=== PATIENT | female | born 1955 | race Caucasian/White ===

== ENCOUNTER 2016-11-01 08:49 | Day surgery (SDC) ==
[2016-08-28 11:30] VITALS: BMI 25.8
[2016-11-01] MEDS ORDERED: DIPRIVAN 20 ML VIAL IVP ONE (10:55)
[2016-11-01] MEDS ORDERED: VERSED ONE (10:55)
[2016-11-01 12:02] VITALS: BP 91/50; TEMP 98.2
--- NOTE | 2016-11-02 08:59 | OP ---
PROCEDURE: COLONOSCOPY TO THE CECUM WITH SNARE POLYPECTOMY. ENDOSCOPIST: Franklin WALLACE M.D. INDICATION: SCREENING INSTRUMENT: [id number]. MEDICATION: PER ANESTHESIA. PROCEDURE: The patient was positioned for colonoscopy. The digital rectal exam was negative. The colonoscope was inserted through the anus and advanced under to the cecum. The cecum was identified using the ileocecal valve and the appendiceal orifice as landmarks. The scope was slowly withdrawn through an adequately prepped colon. Sessile polyps noted at 40 cm consistent with hyperplastic polyps. Diverticula throughout the left colon. Retroflex exam with hemorrhoids. She tolerated the procedure without immediate complication. Withdrawal time 8 minutes and 28 seconds. PLAN: 1. Suggest she be referred for surveillance colonoscopy in five years. CC: DR. JOE PERDOMO
== END 2016-11-01 12:15 | disposition home or self-care (01) ==
LOC: SURG 08:49
PROVIDERS: ATTEND Internal Medicine Gastroenterology
DX: Z12.11 Encounter for screening for malignant neoplasm of colon (principal); D12.5 Benign neoplasm of sigmoid colon; K57.30 Diverticulosis of large intestine without perforation or abscess without bleeding; K64.9 Unspecified hemorrhoids

== ENCOUNTER 2016-11-04 10:02 | Outpatient (CLI) ==
[2016-08-28 11:30] VITALS: BMI 25.8
--- NOTE | 2016-11-04 11:50 | US ---
EXAM: ULTRASOUND LOWER EXTREMITY VENOUS DOPPLER EXAM HISTORY: Leg pain. FINDDINGS: Left lower extremity venous Doppler exam. Real time parson-scale, Doppler spectral analysi s and color-flow Doppler imaging performed. The veins targeted for evaluation include the common fe moral, greater saphenous, profundus, femoral, popliteal, peroneal, anterior tibial and posterior tib ial. The evaluated veins demonstrated normal spontaneous flow and compression without evidence of thrombosis. No valvular reflux. IMPRESSION: No venous thrombosis identified within the areas evaluated.
== END 2016-11-04 10:03 | disposition home or self-care (01) ==
LOC: RAD 10:02
PROVIDERS: ATTEND Emergency Medicine
DX: M79.605 Pain in left leg (principal)

== ENCOUNTER 2016-12-03 12:57 | Outpatient (CLI) ==
[2016-08-28 11:30] VITALS: BMI 25.8
--- NOTE | 2016-12-03 13:47 | DI ---
EXAM: Two views of the right hip. History: Right hip pain. Findings: No acute fracture or dislocation. The right hip joint space is relatively preserved. De generative changes within the lower lumbar spine. Impression: No acute osseous abnormality.
--- NOTE | 2016-12-03 13:50 | DI ---
EXAM: RIGHT KNEE. HISTORY: Right knee pain. FINDINGS: Right knee four view. No comparison. General bone density appears normal. The joints h ave normal articular cartilage width without obvious arthropathy. No notable joint effusion is seen . No fracture or soft tissue finding. IMPRESSION: Within normal limits.
== END 2016-12-03 12:58 | disposition home or self-care (01) ==
LOC: RAD 12:57
PROVIDERS: ATTEND Internal Medicine
DX: M25.551 Pain in right hip (principal); M79.604 Pain in right leg

== ENCOUNTER 2017-01-23 17:37 | Emergency (ER) ==
[2017-01-23 17:43] VITALS: BP 118/81; TEMP 97; BMI 25.9
[2017-01-23 18:07] LABS: BASOPHILS % (AUTO) 0.5 % (0.0-3.0); EOSINOPHILS # (AUTO) 0.2 K/ul (0.0-0.7); EOSINOPHILS % (AUTO) 2.9 % (0.0-7.0); HEMATOCRIT 36.4 % (37.0-47.0); HEMOGLOBIN 12.2 g/dl (12.0-16.0); IMMATURE GRANULOCYTE % (AUTO) 0.3 % (0.0-5.0); LYMPHOCYTES # (AUTO) 1.4 K/uL (0.60-3.4); LYMPHOCYTES % (AUTO) 20.6 (10.0-50.0); MEAN CORPUSCULAR HEMOGLOBIN 29.3 pg (27.0-31.0); MEAN CORPUSCULAR HGB CONC 33.5 (31.8-35.4); MEAN CORPUSCULAR VOLUME 87.5 fl (81.0-99.0); MONOCYTES # (AUTO) 0.6 K/uL (0.4-2.0); MONOCYTES % (AUTO) 9.1 (0-10); NEUTROPHILS # (AUTO) 4.4 K/ul (2.0-6.9); NEUTROPHILS % (AUTO) 66.6; PLATELET COUNT 214 10^3/uL (140-440); RED BLOOD COUNT 4.16 10^6/ul (4.20-5.40); WHITE BLOOD COUNT 6.56 K/ul (4.6-10.2)
[2017-01-23] MEDS ORDERED: TORADOL IM STA (18:19)
[2017-01-23] MEDS ORDERED: DECADRON 4 MG/ML SDV IM STA (18:19)
--- NOTE | 2017-01-23 18:21 | ED.PDOC ---
General ED Provider: Dr. RANDALL SEGAL Chief Complaint: Chest Pain Stated Complaint: Ihave recently diagnosed with fibromyalgia by Dr Diaz. am hurting all over, but also hurting in the chest, dull type, not related to exertions, i had multiple stress tests in the past. i have f/u with Dr luque on tuesday. Time Seen by Physician: 18:19 Mode of Arrival: Walk-In Information Source: Patient Primary Care Provider: FELISHA DIAZ Nursing and Triage Documentation Reviewed and Agree: Yes Cardiovascular Complaint Exam - Chest Pain Complaint/Exam Onset: Gradual Symptoms Are: Still present Timing: Constant Initial Severity: Mild Current Severity: Mild Location: Reports: Midsternal Pain Radiates: Reports: Back, Left shoulder, Right shoulder, Left arm, Right arm , Epigastrium Character: Reports: Dull Aggravating: Reports: None Alleviating: Reports: None Associated Signs and Symptoms: Denies: Diaphoresis, Nausea, Vomiting, Fever, Palpitations, Cough, Hemoptysis, Back pain, Abdominal pain, Dizziness, Short of air, Calf pain, Calf swelling Related History: Reports: Similar episode Related Surgical History: Reports: None History of Healthcare-Acquired Pneumonia: Reports: No AMI/ACS Risk Factors: Reports: None TAD Risk Factors: Reports: None Pulmonary Embolism Risk Factors: Reports: None Prior Care for this Complaint: Yes Recent Stress Test: Yes Recent Echo/LV Function: Yes JVD Present: No Subcutaneous Emphysema Present: No Diminshed Breath Sounds: No Reproducible Chest Wall Pain: No Bilateral Pulses Present: Yes If Risk Factors for AMI/ACS Consider: EKG, Cardiac Enzymes, Serial Studies Differential Diagnoses: Chest Wall Pain, Other (fibromyalgia ) Review of Systems - Review Of Systems Constitutional: Reports: Malaise, Weakness Eyes: Reports: No symptoms Ears, Nose, Mouth, Throat: Reports: No symptoms Respiratory: Reports: No symptoms Cardiac: Reports: Chest pain GI: Reports: No symptoms : Reports: No symptoms Musculoskeletal: Reports: No symptoms Skin: Reports: No symptoms Neurological: Reports: No symptoms Endocrine: Reports: No symptoms Hematologic/Lymphatic: Reports: No symptoms All Other Systems: Reviewed and Negative Past Medical History - Past Medical History Endocrine: Reports: Dyslipidemia Cardiovascular: Reports: Hypertension (meds) Respiratory: Reports: None Hematological: Reports: None Gastrointestinal: Reports: GERD Genitourinary: Reports: None Neuro/Psych: Reports: Depression (meds), Other (fibromylagia ) Musculoskeletal: Reports: None Cancer: Reports: None Last Menstrual Period: none - Surgical History General Surgical History: Reports: None - Family History Family History: Reports: Unknown - Social History Smoking Status: Current every day smoker, Light tobacco smoker Smoking Cessation Counseling Time: > 3 min - 10 min Hx Substance Use: No Alcohol Screening: None Physical Exam - Physical Exam Appearance: Well-appearing, No pain distress, Well-nourished Eyes: LILA, EOMI, Conjunctiva clear ENT: Ears normal, Nose normal, Oropharynx normal Respiratory: Airway patent, Breath sounds clear, Breath sounds equal, Respirations nonlabored Cardiovascular: RRR, Pulses normal, No rub, No murmur GI/: Soft, Nontender, No masses, Bowel sounds normal, No Organomegaly Musculoskeletal: Normal strength, ROM intact, No edema, No calf tenderness Skin: Warm, Dry, Normal color Neurological: Sensation intact, Motor intact, Reflexes intact, Cranial nerves intact, Alert, Oriented Psychiatric: Affect appropriate, Mood appropriate Interpretation - Radiology Interpretation Radiology Interpretation By: ED Physician Radiology Results: Negative Exam Interpreted: CXR - EKG Interpretation Time of EKG #1: 17:45 Rate: Normal Rhythm: Sinus Ectopy: None Re-Evaluation - Re-Evaluation Time of Re-Evaluation: 18:54 Status: Improved Critical Care Note - Critical Care Note Total Time (mins): 0 Course - Course Hematology/Chemistry: 01/23/17 17:55 01/23/17 17:55 Orders, Labs, Meds: Lab Review 01/23/17 17:55 WBC 6.56 RBC 4.16 L Hgb 12.2 Hct 36.4 L MCV 87.5 MCH 29.3 MCHC 33.5 RDW Coeff of Harsh 14.9 H Plt Count 214 Immature Gran % (Auto) 0.3 Neut % (Auto) 66.6 Lymph % (Auto) 20.6 [place] % (Auto) 9.1 Eos % (Auto) 2.9 Baso % (Auto) 0.5 Immature Gran # (Auto) 0.0 Neut # 4.4 Lymph # 1.4 [place] # 0.6 Eos # 0.2 Baso # 0.0 Sodium 138 Potassium 4.1 Chloride 105 Carbon Dioxide 22 L Anion Gap 15.1 BUN 15 Creatinine 1.00 Estimated GFR (MDRD) 56.00 BUN/Creatinine Ratio 15.00 Glucose 97 Calcium 9.4 Total Bilirubin 0.40 AST 19 ALT 21 Alkaline Phosphatase 93 Total Creatine Kinase 53 Troponin I 0.0100 Total Protein 7.7 Albumin 4.2 Globulin 3.5 Albumin/Globulin Ratio 1.20 Orders Category Date Time Status EKG-(ED ONLY) Stat CARDIO 01/23/17 17:46 Completed CBC W/ AUTO DIFF Stat LAB 01/23/17 17:55 Completed COMPREHENSIVE METABOLIC PANEL Stat LAB 01/23/17 17:55 Completed CREATINE KINASE Stat LAB 01/23/17 17:55 Completed TROPONIN I Stat LAB 01/23/17 17:55 Completed Dexamethasone 4 mg/ml Inj [Decadron 4 mg/ml Sdv] MEDS 01/23/17 18:19 Discontinued 4 mg IM ONCE STA Ketorolac Tromethamine [Toradol] MEDS 01/23/17 18:19 Discontinued 60 mg IM ONCE STA CXR [CHEST, 2 VIEWS PA & LAT] Stat RADS 01/23/17 17:46 Taken Medications Discontinued Medications Generic Name Dose Route Start Last Admin Trade Name Lewis PRN Reason Stop Dose Admin Dexamethasone Sodium Phosphate 4 mg 01/23/17 18:19 01/23/17 18:28 Decadron 4 Mg/Ml Sdv IM 01/23/17 18:20 4 mg ONCE STA Administration Ketorolac Tromethamine 60 mg 01/23/17 18:19 01/23/17 18:28 Toradol IM 01/23/17 18:20 60 mg ONCE STA Administration Vital Signs: Temp Pulse Resp BP Pulse Ox 01/23/17 17:37 97.0 F L 76 22 118/81 99 CRIS Risk Score CRIS Risk Score: Risk Score Odds of by 30D 0 0.1 (0.1-0.2) 1 0.3 (0.2-0.3) 2 0.4 (0.3-0.5) 3 0.7 (0.6-0.9) 4 1.2 (1.0-1.5) 5 2.2 (1.9-2.6) 6 3.0 (2.5-3.6) 7 4.8 (3.8-6.1) Departure - Departure Time of Disposition: 18:50 Disposition: HOME SELF-CARE Discharge Problem: Fibromyalgia Instructions: Trigger Point Pain (ED) Condition: Stable Pt referred to PMD for follow-up: Yes Additional Instructions: Patient has f/u with manager motor on tuesday Keep taking prednisone 5 po bid Prescriptions: Prednisone 5 mg PO BIDWM #14 tablet Allergies/Adverse Reactions: Allergies No Known Allergies Allergy (Verified 01/23/17 17:43) Home Medications: Ambulatory Orders Bupropion HCl [Wellbutrin Xl] 300 mg PO DAILY 09/26/13 Lisinopril [Zestril] 20 mg PO DAILY 09/26/13 [place]-3 Fatty Acids/Dha/Epa [Megared Plant-[place] 300 mg Cap] 300 mg PO DAILY Pantoprazole Sodium [Protonix] 40 mg PO DAILY PRN 08/28/16 Atorvastatin Calcium [Lipitor] 20 mg PO DAILY 10/28/16 Multivit-Min/FA/Lycopene/Lut [Centrum Silver Tablet] 1 tab PO DAILY 10/28/16 Alprazolam [Xanax] 0.25 mg PO DAILY PRN 11/01/16 Cholecalciferol (Vitamin D3) [D3-2000] 2,000 units PO DAILY 11/01/16 Prednisone 5 mg PO BIDWM #14 tablet 01/23/17 Disposition Discussed With: Patient, Family
[2017-01-23 18:32] LABS: ALBUMIN 4.2 g/dL (3.4-5.0); ALBUMIN/GLOBULIN RATIO 1.2; ANION GAP 15.1; BILIRUBIN,TOTAL 0.4 mg/dL (0.00-1.20); CALCIUM 9.4 mg/dL (8.2-10.2); POTASSIUM 4.1 mmol/L (3.5-5.10); TOTAL PROTEIN 7.7 g/dL (5.8-8.1); TROPONIN I 0.01 ng/ml (0.0000-0.4000)
--- NOTE | 2017-01-24 07:38 | DI ---
EXAM: Chest two view, frontal and lateral views. HISTORY: Chest pain. COMPARISON: 08/28/2016. FINDINGS: The heart size is normal. There is no pulmonary vascular congestion. The lungs are hype rexpanded with increased interstitial markings. Calcified granulomatous changes noted. Right apica l scarring is stable. No new areas of parenchymal opacity identified. No pleural effusion or pneum othorax is seen. No acute osseous abnormality identified. Since the prior study, there has been no significant interval change. IMPRESSION: No acute cardiopulmonary process.
== END 2017-01-23 18:59 | disposition home or self-care (01) ==
LOC: ED 17:37
DX: M79.7 Fibromyalgia (principal); R07.9 Chest pain, unspecified; E78.5 Hyperlipidemia, unspecified; I10 Essential (primary) hypertension; F17.210 Nicotine dependence, cigarettes, uncomplicated; Z79.899 Other long term (current) drug therapy
CPT/HCPCS: 36415; 80053; 82550; 84484; 85025; 93005; 93010; 96372; 99283

== ENCOUNTER 2017-03-22 13:26 | Outpatient (CLI) ==
--- NOTE | 2017-03-23 10:09 | MAMMO ---
EXAM: Bilateral digital screening mammogram History: Screening Comparison: Bilateral mammogram 02/23/2016 Findings: MLO and CC views of bilateral breasts demonstrate scattered fibroglandular breast parench yma. There are no dominant masses, no suspicious microcalcifications and no architectural distortion s Impression: Stable negative mammogram. Recommend followup routine screening mammography in 1 year. BIRADS 1
== END 2017-03-22 13:27 | disposition home or self-care (01) ==
LOC: RAD 13:26
PROVIDERS: ATTEND Internal Medicine
DX: Z12.31 Encounter for screening mammogram for malignant neoplasm of breast (principal)

== ENCOUNTER 2017-07-26 07:45 | Outpatient (CLI) ==
[2017-07-26 08:13] LABS: CREATININE 0.99 mg/dL (0.60-1.30)
--- NOTE | 2017-07-26 09:23 | CT ---
EXAM: CT ABDOMEN AND PELVIS HISTORY: Tobacco use. Lung nodularity on previous CT. TECHNIQUE: CT abdomen and pelvis without intravenous contrast. Images were reconstructed using 5 mm section thickness. Reformations were prepared. COMPARISON: 06/15/2016 FINDINGS: Normal heart size. No pericardial effusion. Mild atherosclerotic disease. Scattered mediastinal ly mph nodes many which are calcified. Lungs reveal biapical emphysema and are hyperinflated. There is interstitial thickening and nodularit y as well as pleural thickening in the right apex with no worsening or noticeable change since the re cent prior study. A few tiny nonspecific bilateral pleural based micro nodules are seen. There is a calcified granuloma in the left lower lobe measuring about 0.7 cm. No vascular congestion, central interstitial edema, pneumothorax or pleural fluid. The bones reveal degenerative osteophytic spurring of the spine with mild scoliosis convex to the rig ht. IMPRESSION: Redemonstration of pulmonary emphysema and biapical scarring. Nodularity within a porti on of the worse scarring (right apex) exists which may be fibrotic, inflammatory, infectious or proba bryan less likely neoplastic. There has been no noticeable change since the recent prior exam. The la rgest nodular focus of this area measures about 0.88 cm. Consider follow-up CT in approximately 3 mon ths.
--- NOTE | 2017-07-26 09:42 | CT ---
EXAM: CT BRAIN, COMPLETE HISTORY: Headache and dizziness TECHNIQUE: CT brain with and without intravenous contrast. 5-mm axial sections. Reformations were prepared. 100 ml Visipaque 320 FINDINGS: No comparison. Brain parenchyma demonstrates no significant abnormality. No suggestion of recent large vessel distribution ischemic infarction. No intracranial hemorrhage or acute subdura l fluid collection. There is no acute ventriculomegaly, mass or mass effect. After intravenous contrast administration, there were no foci of abnormal contrast enhancement discov ered. Cranium is intact. Mastoid air cells are aerated. The visualized paranasal sinuses are clear. IMPRESSION: Within normal limits.
== END 2017-07-26 07:46 | disposition home or self-care (01) ==
LOC: RAD 07:45
PROVIDERS: ATTEND Internal Medicine
DX: R51 Headache (principal); R42 Dizziness and giddiness; F17.210 Nicotine dependence, cigarettes, uncomplicated
CPT/HCPCS: 36415; 82565

== ENCOUNTER 2017-07-29 14:30 | Outpatient (CLI) ==
--- NOTE | 2017-07-29 14:55 | DI ---
EXAM: Radiographs, left hip HISTORY: Left hip pain. COMPARISON: None available. TECHNIQUE: Two views. FINDINGS: Bone mineralization is decreased. There is no fracture or dislocation. The joint spaces are maintained. No focal soft tissue abnormality is seen. IMPRESSION: No acute abnormality of the left hip.
--- NOTE | 2017-07-29 14:56 | DI ---
Exam: Three x-rays of the lumbar spine. Comparison: CT abdomen pelvis performed on 02/06/2015. Reason for exam: Pain. FINDINGS: Multilevel degenerative disease is seen within the lumbar spine with intervertebral body d isc space height loss and facet hypertrophy. The imaged osseous structures appear diffusely deminera lized. There is mild levoscoliosis of the lumbar spine. There is relative maintenance of the lumbar lordotic curve. Impression: No obvious fracture or listhesis in the lumbar spine with multilevel degenerative diseas e.
== END 2017-07-29 14:31 | disposition home or self-care (01) ==
LOC: RAD 14:30
PROVIDERS: ATTEND Internal Medicine
DX: M54.5 Low back pain (principal); M25.552 Pain in left hip

== ENCOUNTER 2017-10-25 07:40 | Outpatient (CLI) ==
--- NOTE | 2017-10-25 09:41 | DEXA ---
EXAM: Bone densitometry. History: Osteoporosis. Findings: Evaluation of the lumbar spine reveals a total bone mineral density of 1.104 grams per centimeter squ ared with T-score of negative 0.6. Evaluation of the left hip reveals a total bone mineral density of 0.836 grams per centimeter squared with T-score of negative 1.4. Evaluation of the right hip reveals a total bone mineral density of 0.838 grams per centimeter square d with T-score of negative 1.3. Impression: 1. Normal bone mineral density of the lumbar spine. 2. Osteopenia of bilateral hips
== END 2017-10-25 07:41 | disposition home or self-care (01) ==
LOC: RAD 07:40
PROVIDERS: ATTEND Internal Medicine
DX: M81.0 Age-related osteoporosis without current pathological fracture (principal)

== ENCOUNTER 2018-03-30 09:23 | Observation (INO) ==
[2018-03-30] MEDS ORDERED: VALIUM SYRINGE IVP STA (09:52)
[2018-03-30] MEDS ORDERED: VALIUM PO STA (10:18)
--- NOTE | 2018-03-30 11:15 | CT ---
EXAM: CT BRAIN HISTORY: Dizziness TECHNIQUE: CT brain without intravenous contrast. 5-mm axial sections with Reformations. COMPARISON: 07/26/2017 FINDINGS: Brain is unremarkable without evidence of hemorrhage or large vessel distribution recent ischemic in farction. There is no suggestion of acute hydrocephalus or subdural fluid collection. No mass or ma ss effect. Cranium is within normal limits. Mastoid processes are aerated. The visualized paranasal sinuses a re clear. IMPRESSION: No acute intracranial process.
--- NOTE | 2018-03-30 12:04 | ED.PDOC ---
General ED Provider: Dr. NICK SALGADO Chief Complaint: Dizziness Stated Complaint: DIZZINESS Time Seen by Physician: 09:30 (SEEN WITH NURSING STAFF AT ALL TIMES ) Mode of Arrival: Walk-In Information Source: Patient Exam Limitations: No limitations Primary Care Provider: FELISHA DIAZ Nursing and Triage Documentation Reviewed and Agree: Yes Does patient meet sepsis criteria?: No If yes, has appropriate treatment been initiated?: No System Inflammatory Response Syndrome: Not Applicable Sepsis Protocol: For patient's 13 years and over: Temp is 96.8 and below OR 101 and greater Pulse >90 BPM Resp >20/minute Acutely Altered Mental Status Are patient's symptoms suggestive of a new infection, such as: -Pneumonia -Skin, Soft Tissue -Endocarditis -UTI -Bone, Joint Infection -Implantable Device -Acute Abdominal Infection -Wound Infection -Meningitis -Blood Stream Catheter Infection -Unknown Neurological Complaint Exam - Dizziness Complaint/Exam Last Known Well: 1 DAY AGO NOW HAS POSTIONAL VERTIGO Onset: Gradual Duration: 1 DAY NO NEURO DEFICITS Symptoms Are: Still present Timing: Intermittent (HEAD MOTION) Episodes Lasting: Hours Initial Severity: Moderate Current Severity: Mild Character: Reports: Head spinning, Lightheaded Aggravating: Reports: None Alleviating: Reports: Rest Associated Signs and Symptoms: Reports: Nausea. Denies: Vomiting, Diaphoresis, Tinnitus, Chest pain, Short of air, Palpitations, Unsteady gait, GI blood loss, Visual changes, Decreased oral intake, Change in medication, Change in diet, OTC meds, Loss of balance Cardiac Risk Factors: Reports: Hypertension CVA Risk Factors: Reports: Hypertension Related Surgical History: Reports: None JVD Present: No Carotid Bruit Present: No Rectal Heme Positive: No Glascow Coma Scale (see protocol): 15 Nystagmus Present: No Gag Reflex Present: Yes Meningeal Signs Positive: No Focal Weakness: Present: None Focal Sensory Loss: Present: None Gait: Normal Differential Diagnoses: Dysrhythmia, Labyrinthitis Quality Indicators for Cardiac Chest Pain: EKG in 10min. Quality Indicators for AMI: EKG in 10min. Quality Indicator For Non-Traumatic Chest Pain/Syncope: EKG Performed Review of Systems - Review Of Systems Constitutional: Reports: No symptoms Eyes: Reports: No symptoms Ears, Nose, Mouth, Throat: Reports: No symptoms Respiratory: Reports: No symptoms Cardiac: Reports: No symptoms GI: Reports: No symptoms : Reports: No symptoms Musculoskeletal: Reports: No symptoms Skin: Reports: No symptoms Neurological: Reports: Other (DIZZINESS) Endocrine: Reports: No symptoms Hematologic/Lymphatic: Reports: No symptoms All Other Systems: Reviewed and Negative Past Medical History - Past Medical History Previously Healthy: Yes Endocrine: Reports: Dyslipidemia Cardiovascular: Reports: Hypertension (meds) Respiratory: Reports: None Hematological: Reports: None Gastrointestinal: Reports: GERD Genitourinary: Reports: None Neuro/Psych: Reports: Depression (meds), Other (fibromylagia ) Musculoskeletal: Reports: None Cancer: Reports: None Last Menstrual Period: N/A - Surgical History General Surgical History: Reports: None - Family History Family History: Reports: Unknown - Social History Smoking Status: Current every day smoker, Light tobacco smoker Hx Substance Use: No Alcohol Screening: None - Immunizations Tetanus Shot up to Date: No Physical Exam - Physical Exam Appearance: Well-appearing, No pain distress, Well-nourished Eyes: LILA, EOMI, Conjunctiva clear ENT: Ears normal, Nose normal, Oropharynx normal Respiratory: Airway patent, Breath sounds clear, Breath sounds equal, Respirations nonlabored Cardiovascular: RRR, Pulses normal, No rub, No murmur GI/: Soft, Nontender, No masses, Bowel sounds normal, No Organomegaly Musculoskeletal: Normal strength, ROM intact, No edema, No calf tenderness Skin: Warm, Dry, Normal color Neurological: Sensation intact, Motor intact, Reflexes intact, Cranial nerves intact, Alert, Oriented Psychiatric: Affect appropriate, Mood appropriate Interpretation - Radiology Interpretation Radiology Interpretation By: Radiologist Radiology Results: No acute changes Re-Evaluation - Re-Evaluation Time of Re-Evaluation: 11:00 Status: Improved Vital Signs Stable: Yes Pain Level: 0 Appearance: NAD Lungs: Clear Skin: Warm and Dry Neuro: Alert and Oriented X3 CV: RRR - Re-Evaluation Time of Re-Evaluation: 12:04 Status: Improved Vital Signs Stable: Yes Pain Level: 0 Appearance: NAD Skin: Warm and Dry Neuro: Alert and Oriented X3 CV: RRR Physician Notification - Case Discussed Physician Notified: PMD Critical Care Note - Critical Care Note Total Time (mins): 0 Course - Course Hematology/Chemistry: 03/30/18 10:15 03/30/18 10:15 Orders, Labs, Meds: Lab Review 03/30/18 03/30/18 10:15 10:15 WBC 5.18 RBC 4.14 L Hgb 12.2 Hct 36.5 L MCV 88.2 MCH 29.5 MCHC 33.4 RDW Coeff of Harsh 14.6 Plt Count 176 Immature Gran % (Auto) 0.2 Neut % (Auto) 77.0 Lymph % (Auto) 12.9 [place] % (Auto) 8.3 Eos % (Auto) 1.2 Baso % (Auto) 0.4 Immature Gran # (Auto) 0.0 Neut # (Auto) 4.0 Lymph # (Auto) 0.7 [place] # (Auto) 0.4 Eos # (Auto) 0.1 Baso # (Auto) 0.0 Sodium 137 Potassium 4.3 Chloride 104 Carbon Dioxide 24 Anion Gap 13.3 BUN 15 Creatinine 1.09 Estimated GFR (MDRD) 51.00 BUN/Creatinine Ratio 13.76 Glucose 100 Calcium 9.4 Total Bilirubin 0.6 AST 18 ALT 20 Alkaline Phosphatase 81 Total Creatine Kinase 53 Troponin I 0.0130 Total Protein 7.4 Albumin 3.8 Globulin 3.6 Albumin/Globulin Ratio 1.06 Orders Category Date Time Status EKG-(ED ONLY) Stat CARDIO 03/30/18 09:51 Completed ED IV/MEDIPORT/POWERPORT .ONCE EMERGENCY 03/30/18 09:51 Active ED IV/MEDIPORT/POWERPORT .ONCE EMERGENCY 03/30/18 09:51 Inactive CBC W/ AUTO DIFF Stat LAB 03/30/18 10:15 Completed COMPREHENSIVE METABOLIC PANEL Stat LAB 03/30/18 10:15 Completed CREATINE KINASE Stat LAB 03/30/18 10:15 Completed TROPONIN I Stat LAB 03/30/18 10:15 Completed 0.9 % Sodium Chloride [Saline Flush] MEDS 03/30/18 09:50 Active 1 syr IVF PRN PRN 0.9 % Sodium Chloride [Saline Flush] MEDS 03/30/18 09:51 Active 1 syr IVF PRN PRN Atorvastatin Calcium [Lipitor] MEDS 03/31/18 09:00 Ordered 20 mg PO DAILY Bupropion HCl [Wellbutrin Xl] MEDS 03/31/18 09:00 Ordered 300 mg PO DAILY Diazepam [Valium] MEDS 03/30/18 10:18 Discontinued 5 mg PO ONCE STA Lisinopril [Zestril] MEDS 03/31/18 09:00 Ordered [address] HEAD W/O CONTRAST Stat RADS 03/30/18 09:52 Completed Medications Generic Name Dose Route Start Last Admin Trade Name Freq PRN Reason Stop Dose Admin Atorvastatin Calcium 20 mg 03/31/18 09:00 Lipitor PO DAILY MIMI Non-Formulary Medication 300 mg 03/31/18 09:00 Bupropion Hcl [Wellbutrin Xl] PO DAILY MIMI Non-Formulary Medication 20 mg 03/31/18 09:00 Lisinopril [Zestril] PO DAILY MIMI Sodium Chloride 1 syr 03/30/18 09:50 Saline Flush IVF PRN PRN To flush IV Sodium Chloride 1 syr 03/30/18 09:51 03/30/18 10:29 Saline Flush IVF 1 syr PRN PRN Administration To flush IV Discontinued Medications Generic Name Dose Route Start Last Admin Trade Name Freq PRN Reason Stop Dose Admin Diazepam 5 mg 03/30/18 10:18 03/30/18 10:29 Valium PO 03/30/18 10:19 5 mg ONCE STA Administration Vital Signs: Temp Pulse Resp BP Pulse Ox 03/30/18 09:24 96.6 F L 70 18 135/77 97 Departure - Departure Time of Disposition: 12:05 Disposition: ADMITTED INPATIENT Discharge Problem: Dizziness Instructions: Vertigo (ED) Condition: Good Pt referred to PMD for follow-up: Yes IPMP verified?: No Additional Instructions: Please call your Family Physician as soon as possible to schedule a follow-up appointment. Allergies/Adverse Reactions: Allergies No Known Allergies Allergy (Verified 03/30/18 09:27) Home Medications: Ambulatory Orders Bupropion HCl [Wellbutrin Xl] 300 mg PO DAILY 09/26/13 Lisinopril [Zestril] 20 mg PO DAILY 09/26/13 [place]-3 Fatty Acids/Dha/Epa [Megared Plant-[place] 300 mg Cap] 300 mg PO DAILY Atorvastatin Calcium [Lipitor] 20 mg PO DAILY 10/28/16 Multivit-Min/FA/Lycopen/Lutein [Centrum Silver Tablet] 1 tab PO DAILY 10/28/16 Alprazolam [Xanax] 0.25 mg PO DAILY PRN 11/01/16 Cholecalciferol (Vitamin D3) [D3-2000] 2,000 units PO DAILY 11/01/16
[2018-03-30] MEDS ORDERED: ANTIVERT PO PRN (12:06)
[2018-03-30] MEDS ORDERED: ANTIVERT PO STA (12:06)
[2018-03-30 14:37] VITALS: BMI 27.6
[2018-03-30] MEDS: VALIUM PO SCH ×2 (15:26→21:05)
[2018-03-30] MEDS: SODIUM CHLORIDE 1,000 ML IV SCH (15:28)
[2018-03-30] MEDS: NON-FORMULARY MEDICATION (Pregabalin 25 MG) PO SCH (21:05)
[2018-03-31] MEDS: SODIUM CHLORIDE 1,000 ML IV SCH (04:07)
[2018-03-31] MEDS: VALIUM PO SCH (04:45)
[2018-03-31 05:57] VITALS: BP 98/59; TEMP 97.6
--- NOTE | 2018-03-31 07:55 | DI ---
EXAM: Chest two view, frontal and lateral views. HISTORY: Cough. COMPARISON: 07/26/2017, 01/23/2017. FINDINGS: The heart size is normal. There is no pulmonary vascular congestion. The lungs are clear save for right apical scarring and calcified granulomatous changes. No pleural effusion or pneumoth orax is seen. No acute osseous abnormality identified. Since the prior study, there has been no sig nificant interval change. IMPRESSION: No acute cardiopulmonary process.
[2018-03-31] MEDS: NON-FORMULARY MEDICATION (Pregabalin 25 MG) PO SCH (08:43)
[2018-03-31] MEDS ORDERED: NON-FORMULARY MEDICATION (Bupropion Hcl [Wellbutrin Xl] 300 MG) PO SCH (09:00)
[2018-03-31] MEDS ORDERED: LIPITOR PO SCH (09:00)
[2018-03-31] MEDS ORDERED: ZESTRIL PO SCH (09:00)
[2018-03-31] MEDS ORDERED: NON-FORMULARY MEDICATION (Lisinopril [Zestril] 20 MG) PO SCH (09:00)
[2018-03-31] MEDS ORDERED: WELLBUTRIN XL PO SCH (09:00)
--- NOTE | 2018-03-31 13:14 | HP ---
DATE OF SERVICE: 03/30/18 HISTORY OF PRESENT ILLNESS: This 62-year-old white female who presents to the emergency room complaining of dizziness. She walked in by herself. She states symptoms started a day ago. She reports her head feels like it is spinning. She is light-headed with nausea. She has not vomited. PAST MEDICAL HISTORY: Hypertension Left cervical radiculopathy Dyslipidemia Degenerative joint disease of the spine Left hip pain COPD GERD Fibromyalgia Vitamin D deficiency Left sciatica Right foot pain due to arthritis Hiatal hernia Chronic kidney disease Atherosclerotic heart disease History of lung nodule 02/24 Varicose veins Anxiety Bone density 10/30 Mammogram 03/28 PAST SURGICAL HISTORY: Last colonoscopy 11/01/[address] Almaraz Basal cell on chest removed by Dr. Martinez REVIEW OF SYSTEMS: CONSTITUTIONAL: Positive for malaise. No night sweats. No fatigue, lethargy. No fever or chills. HEENT: Eyes: No visual changes. No eye pain. No eye discharge. ENT: No runny nose. No epistaxis. No sinus pain. No sore throat. No odynophagia. No ear pain. No congestion. RESPIRATORY: No cough, no congestion. No hemoptysis. No shortness of breath. CARDIOVASCULAR: No angina symptoms. No CHF symptoms. No atypical chest pain for CAD. No palpitations. No PND. No orthopnea. GASTROINTESTINAL: Positive for nausea. No abdominal pain. No vomiting. No diarrhea or constipation. No hematemesis. No hematochezia. GENITOURINARY: No urgency. No frequency. No dysuria. No hematuria. No obstructive symptoms. No discharge. No pain. No significant abnormal bleeding. MUSCULOSKELETAL: No musculoskeletal pain. No joint swelling. No arthritis. NEUROLOGICAL: Positive for dizziness, lightheadedness. No headache. No neck pain. No syncope. No seizures. PSYCHIATRIC: Not anxious. No depression. No suicidal thoughts. No homicidal thoughts. SKIN: No rash. No lesions. No wounds. ENDOCRINE: No unexplained weight loss. No weight gain. HEMATOLOGIC/LYMPHATIC: No anemia. No purpura. No petechiae. No prolonged or excessive bleeding. No palpable lymph nodes. PERSONAL/FAMILY/SOCIAL HISTORY: The patient is , she currently lives with her . She is a pack per day smoker. However, the last time she was in our office, she quit as of February 2018. MEDICATIONS: (HOME) [place]-3 Fatty Acids/Dha/Epa 300 mg p.o. daily Zestril 20 mg p.o. daily Wellbutrin XL 300 mg p.o. daily Lipitor 20 mg p.o. daily Multivitamin/Min/FA/Lycopen/Lutein (Centrum Silver) one tab p.o. daily ALLERGIES: NKDA PHYSICAL EXAMINATION: VITAL SIGNS: Temperature 96.6, heart rate 70, respirations 18, BP 135/77, oxygen 97%. HEENT: Head normocephalic, atraumatic. Eyes: Extraocular muscles are intact. Pupils are equal, round and reactive to light and accommodation. Ears: No lesions. Nose appeared normal. Throat: No exudate or erythema. NECK: Supple. No JVD, no carotid bruit. No lymphadenopathy or thyromegaly. LUNGS: Diminished breath sounds bilaterally. Clear to auscultation. Percussion note normal. Chest symmetrical. HEART: S1, S2, no S3. No murmurs. No cyanosis or clubbing. No ascites. Pulses: Dorsalis pedis and posterior tibial pulses +1 to +2 bilaterally. ABDOMEN: Soft. Nontender. Bowel sounds active. No CVA tenderness. No mass felt. EXTREMITIES: No edema. Full range of motion of all extremities, equal. NEUROLOGIC: Alert, oriented times three. No focal deficit. Cranial nerves II through XII are grossly intact. No headache, no double vision or headache. SKIN: Not dry. Intact. Turgor - normal. LYMPHATIC: No palpable lymph nodes/no lymphedema. MUSCULOSKELETAL: Normal joints with no swelling. Muscle tone is normal. CT scan of the brain was normal. White count 5.18, hemoglobin 12.2, hematocrit 36.5, platelets 176. Sodium 137, potassium 4.3, BUN 15, creatinine 1.09, glucose 100. AST 18, ALT 20, alkaline phosphatase 81. Total protein 7.4, albumin 3.8, globulin 3.6. ASSESSMENT: 1. DIZZINESS 2. NAUSEA 3. COPD 4. HYPERTENSION 5. DYSLIPIDEMIA 6. DEGENERATIVE JOINT DISEASE 7. GERD 8. FIBROMYALGIA 9. VITAMIN D DEFICIENCY PLAN: 1. We will admit to observation. 2. Routine telemetry orders. 3. Continue home medications. 4. She received 5 mg of Valium in the emergency room. She can receive 4 mg t.i.d. p.r.n. along with Antivert 25 mg t.i.d. p.r.n., Zofran 4 mg IV q.6hr as needed. 5. IV fluids NS at 75 cc/hr. 6. Will follow her closely. 7. Continue home medications. TIME SPENT: More than 70 minutes. LEANNE
--- NOTE | 2018-03-31 13:18 | PN ---
DATE OF SERVICE: 03/30/18 SUBJECTIVE: The patient was seen and examined with the nurse practitioner. She was hospitalized with dizziness, lightheadedness, vomiting and nausea. PHYSICAL EXAMINATION: HEENT: Head normocephalic, atraumatic. Eyes: Extraocular muscles are intact. Pupils are equal, round and reactive to light and accommodation. Ears: No lesions. Nose appeared normal. Throat: No exudate or erythema. NECK: Supple. No JVD, no carotid bruit. No lymphadenopathy or thyromegaly. LUNGS: Clear to auscultation. Percussion note normal. Chest symmetrical. HEART: S1, S2, no S3. No murmurs. No cyanosis or clubbing. No ascites. Pulses: Dorsalis pedis and posterior tibial pulses +1 to +2 both sides. ABDOMEN: Soft. Nontender. Bowel sounds active. No CVA tenderness. No mass felt. EXTREMITIES: No edema. Full range of motion of all extremities, equal. NEUROLOGIC: No focal deficit. Cranial nerves II through XII are grossly intact. No headache, no double vision or headache. SKIN: Not dry. Intact. Turgor - normal. LYMPHATIC: No palpable lymph nodes/no lymphedema. MUSCULOSKELETAL: Normal joints with no swelling. Muscle tone is normal. ASSESSMENT/PLAN: 1. VESTIBULAR DYSFUNCTION WITH NAUSEA AND VOMITING, RULE OUT ANY NEUROLOGICAL PROBLEMS. WILL MONITOR NEUROLOGICAL STATUS. WILL PUT PATIENT ON ANTIVERT AND VALIUM. CONDITION: Stable TIME SPENT: More than 30 minutes. Plan and coordination of the patient's care discussed in the presence of nurse. LEANNE
--- NOTE | 2018-03-31 14:37 | PN ---
DATE OF SERVICE: 03/31/18 SUBJECTIVE: The patient was hospitalized with vestibular dysfunction and dizziness. The patient is up and about feeling alot better. The patient is going to be discharged home on Antivert and Valium. The patient's neurological status is stable. The patient was seen and examined with Nurse Practitioner. CONDITION: Stable. TIME SPENT: More than 30 minutes. Plan and coordination of the patient's care discussed in the presence of nurse. LEANNE
--- NOTE | 2018-03-31 14:38 | PN ---
03/30/18: Level 5 03/31/18: D as in discharge, observation MTDD
--- NOTE | 2018-05-11 11:20 | SSS ---
DATE OF SERVICE: 03/31/18 REASON FOR ADMISSION: 62-year-old female admitted to observation for vertigo, near syncope. HISTORY OF PRESENT ILLNESS: 63-year-old female presented to the ER with head spinning, light-headed, worse with movement. Left arm and left shoulder pain. Weakness in legs. Left side of mouth "feels weird". REVIEW OF SYSTEMS: CONSTITUTIONAL: No night sweats. No fatigue, malaise, lethargy. No fever or chills. HEENT: Eyes: No visual changes. No eye pain. No eye discharge. ENT: No runny nose. No epistaxis. No sinus pain. No sore throat. No odynophagia. No ear pain. No congestion. RESPIRATORY: No cough, no congestion. No hemoptysis. No shortness of breath. CARDIOVASCULAR: No angina symptoms. No CHF symptoms. No atypical chest pain for CAD. No palpitations. No orthopnea. GASTROINTESTINAL: No abdominal pain. No nausea or vomiting. No diarrhea or constipation. No hematemesis. No hematochezia. GENITOURINARY: No dysuria. No hematuria. No obstructive symptoms. No discharge. No pain. No significant abnormal bleeding. MUSCULOSKELETAL: No musculoskeletal pain. No joint swelling. NEUROLOGICAL: Awake, alert, oriented to time, place and person. No headache. No neck pain. No syncope. No seizures. No dizziness. No unifocal or unilateral weakenss. No speech difficulties. No visual difficulties. PSYCHIATRIC: Not anxious. No depression. No suicidal thoughts. No homicidal thoughts. SKIN: No rash. No lesions. No wounds. ENDOCRINE: No unexplained weight loss. No weight gain. HEMATOLOGIC/LYMPHATIC: No anemia. No purpura. No petechiae. No prolonged or excessive bleeding. No palpable lymph nodes. PAST MEDICAL HISTORY: Hypertension Dyslipidemia Emphysema GERD Fibromyalgia Hiatal hernia Osteoarthritis right foot Osteopenia bilateral hips Depression/Anxiety PERSONAL/FAMILY HISTORY/SOCIAL HISTORY: Resides at home with spouse. Adult children are supportive. Independent with ADLs. No DME, no Home Health and no Homemaking Services. Former smoker, stopped 02/10/18 PHYSICAL EXAMINATION: GENERAL: The patient is a 62-year-old female. Height 5'7", weight 176. VITAL SIGNS: On admission: BP left 103/65, right 121/68, heart rate 70, respiratory rate 18, temperature 96.6. Pulse ox on room air 97%. HEENT: Head normocephalic, atraumatic. Eyes: Extraocular muscles are intact. Pupils are equal, round and reactive to light and accommodation. Ears: No lesions. Nose appeared normal. Throat: No exudate or erythema. NECK: Supple. No JVD, no carotid bruit. No lymphadenopathy or thyromegaly. LUNGS: Clear to auscultation. Percussion note normal. Chest symmetrical. HEART: S1, S2, no S3. No murmurs. No cyanosis or clubbing. No ascites. Pulses: Dorsalis pedis and posterior tibial pulses +1 to +2 both sides. ABDOMEN: Soft. Nontender. Bowel sounds active. No CVA tenderness. No mass felt. EXTREMITIES: No edema. Full range of motion of all extremities, equal. NEUROLOGIC: DTR/motor/sensory/gait normal. SKIN: Not dry. Intact. Turgor - normal. LYMPHATIC: No palpable lymph nodes/no lymphedema. MUSCULOSKELETAL: Normal joints with no swelling. Muscle tone is normal. Old/present records reviewed Office records reviewed. ALLERGIES: NKDA MEDICATIONS: Lyrica [place] 3 MVI Zestril Vitamin D3 Wellbutrin Lipitor Xanax LABS/EKG'S/X-RAY/ECHO/ABG: WBC 5.18, hemoglobin 12.2, platelets 176, hematocrit 36.5. NA 137, chloride 104 , BUN 15, K+ 4.3, c02 24, creatinine 1.09. Chest x-ray 03/30 no acute cardiopulmonary problem. 03/30 CT brain - no acute intracranial process. PROGRESS NOTES: 03/31/18 The patient says she no longer has dizziness. She is able to be up and about. No weakness. BP is low normal. Will hold BP meds times two days. Dischasrge today. Neuro status is intact. Case Discussed with Attending Physician: Case Discussed with Family: Yes DIAGNOSES: 1. VERTIGO/VESTIBULAR DYSFUNCTION 2. HYPERTENSION 3. DYSLIPIDEMIA 4. COPD 5. SMOKER PLAN: 1. Discharge home 2. Return to office 04/07/18 @ 10:30 a.m. 3. Prescription for Meclizine 25 mg t.i.d. p.r.n. vertigo #30 4. Valium 2 mg t.i.d. p.r.n. vertigo #30 5. Do not take Zestril times two days then resume 6. Monitor blood pressure at home EDUCATION CARRIED OUT ABOUT: Followup, new medications, vertigo and smoking counseling done. TIME SPENT: More than 70 minutes. MTDD
== END 2018-03-31 09:40 | disposition home or self-care (01) ==
LOC: ED 09:23 → MEDSURG B 12:10 → INTOOBSV 12:10
PROVIDERS: ADMIT Internal Medicine; ATTEND Internal Medicine
DX: R42 Dizziness and giddiness (principal); R11.0 Nausea; R55 Syncope and collapse; J44.9 Chronic obstructive pulmonary disease, unspecified; I10 Essential (primary) hypertension; E78.5 Hyperlipidemia, unspecified; E55.9 Vitamin D deficiency, unspecified; K21.9 Gastro-esophageal reflux disease without esophagitis; M19.90 Unspecified osteoarthritis, unspecified site; M79.7 Fibromyalgia; Z72.0 Tobacco use
CPT/HCPCS: 36415; 80053; 82550; 84484; 85025; 93005; 93010; 96360; 96361; 99217; 99220; 99285

== ENCOUNTER 2018-04-10 09:22 | Outpatient (CLI) ==
--- NOTE | 2018-04-10 11:02 | MAMMO ---
EXAM: Digital screening mammogram with tomosynthesis HISTORY: Screening COMPARISON: 03/22/2017 FINDINGS: Digital MLO and CC views of the right and left breast were performed. Tomosynthesis was performed. Computer aided detection utilized. There are scattered fibroglandular densities. There is no evidence for mass, asymmetry, distortion, or suspicious calcifications in either breast. IMPRESSION: 1. No evidence of malignancy in the right or left breast. 2. Annual screening mammogram is recommended in one year. BIRADS category 1, negative examination
== END 2018-04-10 09:23 | disposition home or self-care (01) ==
LOC: RAD 09:22
PROVIDERS: ATTEND Internal Medicine
DX: Z12.31 Encounter for screening mammogram for malignant neoplasm of breast (principal)
CPT/HCPCS: 77067

== ENCOUNTER 2018-09-18 11:29 | Outpatient (CLI) ==
--- NOTE | 2018-09-18 11:59 | DI ---
EXAM: Two views of the chest. History: Cough, history smoking Comparison: Chest radiograph 03/30/2018 Findings: Heart size is normal. Emphysema. Calcified granulomas seen within the thorax. No pleura l fluid and no pneumothorax. No acute osseous abnormalities. Scarring again seen within the upper l ungs. Impression: No acute cardiopulmonary process. Chronic obstructive pulmonary disease
== END 2018-09-18 11:30 | disposition home or self-care (01) ==
LOC: RAD 11:29
PROVIDERS: ATTEND Internal Medicine
DX: J44.9 Chronic obstructive pulmonary disease, unspecified (principal); R05 Cough; Z87.891 Personal history of nicotine dependence

== ENCOUNTER 2018-10-11 08:40 | Outpatient (CLI) ==
--- NOTE | 2018-10-11 09:47 | CT ---
Exam: CT of the right shoulder without intravenous contrast. Comparison: None available. Reason for exam: Right shoulder pain. FINDINGS: No acute fracture or dislocation in the right shoulder. Degenerative disease is seen in t he right acromial clavicular joint space. No cortical irregularities are seen within the humeral hea d neck or proximal humerus. The clavicle appears intact. The scaphoid appears unremarkable. Diffuse emphysematous disease is seen in the partially imaged right hemithorax. Impression: 1. No acute fracture or dislocation in the right shoulder. 2. Degenerative disease most notably in the acromioclavicular joint space. 3. Diffuse emphysematous disease in the partially imaged lung parenchyma
== END 2018-10-11 08:41 | disposition home or self-care (01) ==
LOC: RAD 08:40
PROVIDERS: ATTEND Internal Medicine
DX: M25.511 Pain in right shoulder (principal)

== ENCOUNTER 2018-10-20 08:46 | Outpatient (CLI) ==
--- NOTE | 2018-10-20 09:35 | CT ---
EXAM: CT of the abdomen pelvis with contrast History: Left upper quadrant abdominal pain Comparison: CT abdomen pelvis 02/06/2015 Technique: Multiplanar CT images through the abdomen pelvis were obtained following administration o f IV contrast Findings: Lung bases are clear. No acute osseous abnormalities. No gallstones identified by CT. En larged fatty liver. Stable small simple hepatic cyst. Atherosclerotic vascular calcifications. Spl een is unremarkable. Pancreas is within normal limits. Adrenal glands are normal. No renal masses. No bowel obstruction. No bladder wall thickening. Colonic diverticulosis. No free air and no asc ites. No inflammatory stranding. Impression: 1. No acute intra-abdominal or pelvic process. 2. Colonic diverticulosis. 3. Mildly enlarged fatty liver. 4. Stable small simple hepatic cyst
== END 2018-10-20 08:47 | disposition home or self-care (01) ==
LOC: RAD 08:46
PROVIDERS: ATTEND Internal Medicine
DX: R10.9 Unspecified abdominal pain (principal)

== ENCOUNTER 2018-11-09 09:52 | Outpatient (CLI) ==
--- NOTE | 2018-11-09 12:35 | MRI ---
EXAM: MRI right shoulder without contrast. HISTORY: Pain. Rotator cuff tear. No right shoulder surgery reported.. TECHNIQUE: Using a local coil on a high field strength magnet multiplanar multisequence magnet reson ance imaging was attempted of the right shoulder without intravenous or intra-articular gadolinium co ntrast.. COMPARISON: CT right shoulder 10/11/2018. FINDINGS: A Type I I I acromion with hook like downsloping. Coracoacromial ligament/arch intact wit h some thickening. There is additionally a moderate degree of right acromioclavicular joint degenera tive arthrosis/osteoarthrosis. Fatty infiltration with some atrophic change deltoid. Free fluid sub acromial/subdeltoid bursa. Muscle bulk of the rotator cuff shows some fatty infiltration. Some relative atrophy of the infraspi natus.. Diffuse infraspinatus tendinosis.. High-grade near full-thickness to full-thickness tearing infraspinatus. Upwards of 20 mm of distal tendon end retraction. There are thought to be intact po sterior inferior infraspinatus tendon fibers. There are diminutive intact supraspinatus/infraspinatu s tendon fibers over the interval with bursal sided fraying. Anterior to this level there is diffuse supraspinatus tendinosis with large area of high-grade tearing with full-thickness extent measuring approximate 16 mm wide by upwards of 20 mm. Posterior inferior intact teres minor tendon fibers. An terior intact subscapularis tendon fibers. The long head of the biceps tendon shows intact fibers lo cated in expected position within the bicipital groove. The right humeral head is of normal morphology and seated. No right glenohumeral joint centered subc hondral bone marrow edema or bone erosions. Small right glenohumeral joint effusion. Right glenoid labrum grossly intact on this non-arthrographic examination. IMPRESSION: Moderate right acromioclavicular joint degenerative arthrosis/osteoarthrosis. Relative infraspinatus muscle atrophy. Diffuse infraspinatus tendinosis. High-grade near full-thick ness to full-thickness tearing. Diminutive intact supraspinatus/infraspinatus tendon fibers over the interval with bursal sided fraying. Anterior diffuse supraspinatus tendinosis with large area of hi gh-grade tearing with full-thickness extent as well. Free fluid subacromial/subdeltoid bursa. Small right glenohumeral joint effusion.
== END 2018-11-09 09:53 | disposition home or self-care (01) ==
LOC: RAD 09:52
PROVIDERS: ATTEND Physician Assistant
DX: M25.511 Pain in right shoulder (principal); M75.111 Incomplete rotator cuff tear or rupture of right shoulder, not specified as traumatic; S46.011A Strain of muscle(s) and tendon(s) of the rotator cuff of right shoulder, initial encounter

== ENCOUNTER 2019-05-16 06:32 | Outpatient (CLI) ==
--- NOTE | 2019-05-18 12:22 | ECHO2D ---
Date of Exam: 05/16/19 Ordering Physician: DR. FELISHA DIAZ Room #: OP Reason for Echo: SOB, CHEST PAIN M-Mode Normal Adult Results LV Dimensions Normal Adult Results AoV Opening excursions >1.6 >1.6 LVEDD-base- 3.5-5.8 4.6 Ao root dimensions 2.0-3.7 3.4 LVESD-base- 3.1-4.6 L. Atrium dimensions 1.9-3.8 3.5 Post. Wall thickness 0.8-1.1 1.1 IV septum (thickness) 0.7-1.2 1.2 Post. Wall excursion 0.72-1.3 NORMAL Septal motion NORMAL Systolic motion R. Ventricular cavity 1.5-2.0 NORMAL LVEF 60% 68% Paradoxical septal wall motion NORMAL 2-D : 2-D M Mode Echocardiogram was performed using apical four chamber and left parasternal long and short axis views. Mitral, tricuspid and aortic valves appear to be normal. Contractility of the left ventricle seems to be normal, so is the cavity size. Left atrial cavity size and aortic root appear to be normal. There is no pericardial effusion. There is no thrombus noted in the left ventricular or left aortic cavity. No mitral valve prolapse noted. M-MODE: MV: NORMAL AV: NORMAL TV: NORMAL PV: CHAMBER SIZE: NORMAL WALL MOTION: NORMAL PERICARDIUM: NORMAL INTERPRETATION: 1. BORDERLINE LEFT VENTRICULAR HYPERTROPHY --NORMAL LEFT ATRIAL SIZE 2. NORMAL LEFT VENTRICULAR CONTRACTILITY 3. NORMAL VALVES MTDD
== END 2019-05-16 06:33 | disposition home or self-care (01) ==
LOC: CAR 06:32
PROVIDERS: ATTEND Internal Medicine
DX: R06.02 Shortness of breath (principal); R07.9 Chest pain, unspecified

== ENCOUNTER 2019-05-17 06:33 | Outpatient (CLI) ==
--- NOTE | 2019-05-18 12:35 | STRESSECHO ---
Date of Test: 05/17/19 Ordering Physician: DR. FELISHA DIAZ Occupation: [employer] Reason for Exam: CHEST PAIN, SOB, HYPERTENSION, HYPERLIPIDEMIA Smoking History : QUIT 1 YR AGO Height: 67" Weight: 188 LBS Current Medications: ATORVASTATIN, WELLBUTRIN,ZESTRIL, TRICOR Resting EKG: ATRIAL FLUTTER WITH RATE OF 80 BPM Target Heart Rate: 131/155 S-T SEGMENT STAGE MPH/GRADE HEART RATE BPM BLOOD PRESSURE [facility] RHYTHM +/- ELEVATION DEPRESSION SYMPTOMS AT REST 73 BPM 122/68 [facility] A FLUTTER X NONE 1 1.7/10% 142 BPM 130/66 MM[facility] A FIB/FLUTTER X NONE 2 2.5/12% 3 3.4/14% 4 4.2/16% 5 5.0/18% Immediately After 166 BPM 170/60 [facility] A FIB/FLUTTER X SHORT OF AIR Minutes Post Exercise 5:00 100 BPM 122/70 MM[facility] A FIB/FLUTTER X NONE Minutes Post Exercise DURATION OF EXERCISE: 4:31 MAXIMUM HEART RATE REACHED: 166 BPM REASON FOR TERMINATION: SHORT OF AIR 97% OXYGEN SATURATION WITH EXERCISE ON ROOM AIR METS 7.0 INTERPRETATION: 1. NO EVIDENCE OF ISCHEMIA BY ST-T WAVE 2. NO CHEST PAIN OR DISCOMFORT 3. ATRIAL FIBRILLATION/ FLUTTER WITH SINUS RHYTHM NOTED 4. BLOOD PRESSURE RESPONSE: ADEQUATE NORMAL LEFT VENTRICULAR CONTRACTILITY RESTING AND POST EXERCISE MTDD
--- NOTE | 2019-05-18 12:39 | ECHOSTRESS ---
Date of Exam: 05/17/19 Ordering Physician: DR. FELISHA DIAZ Reason for Echo: CHEST PAIN, SOB, STRESS TEST--NO ISCHEMIA M-Mode Normal Adult Results LV Dimensions Normal Adult Results AoV Opening excursions >1.6 LVEDD-base- 3.5-5.8 Ao root dimensions 2.0-3.7 LVESD-base- 3.1-4.6 L. Atrium dimensions 1.9-3.8 Post. Wall thickness 0.8-1.1 IV septum (thickness) 0.7-1.2 Post. Wall excursion 0.72-1.3 Septal motion Systolic motion R. Ventricular cavity 1.5-2.0 LVEF 60% Paradoxical septal wall motion 2-D: NORMAL LEFT VENTRICULAR CONTRACTILITY--RESTING AND POST EXERCISE M-MODE: MV: AV: TV: PV: CHAMBER SIZE: WALL MOTION: NORMAL LEFT VENTRICULAR CONTRACTILITY--RESTING AND POST EXERCISE PERICARDIUM: INTERPRETATION: 1. NORMAL LEFT VENTRICULAR CONTRACTILITY--RESTING AND POST EXERCISE MTDD
== END 2019-05-17 06:34 | disposition home or self-care (01) ==
LOC: CAR 06:33 → EEVIPCON 06:45
PROVIDERS: ATTEND Internal Medicine
DX: R06.02 Shortness of breath (principal); R07.9 Chest pain, unspecified
CPT/HCPCS: 93227